=== PATIENT | female | born 1995 | race Caucasian/White ===

== ENCOUNTER 2017-05-02 15:45 | Emergency (ER) | payer MEDICAID ==
[~2017-05-02] VITALS: Ht 167.6 cm; Wt 51.0 kg
[2017-05-02] MEDS ORDERED: NAPR-943 PO (16:07)
[2017-05-02] MEDS ORDERED: IBUP-2354 PO (16:07)
[2017-05-02] MEDS ORDERED: ACET-2116 PO (16:07)
[2017-05-02 17:05] LABS: BASOPHILS # (AUTO) 0.02 K/uL (0.00-0.20); BASOPHILS % (AUTO) 0.3 % (0.0-2.0); EOSINOPHILS # (AUTO) 0.01 K/uL (0.00-0.70); EOSINOPHILS % (AUTO) 0.12 % (1.0-6.0); HEMATOCRIT 41.2 % (36-46); HEMOGLOBIN 13.6 g/dL (12.0-16.0); LYMPHOCYTES # (AUTO) 1.2 K/uL (1.0-4.8); LYMPHOCYTES % (AUTO) 20.4 % (22.0-44.0); MEAN CORPUSCULAR HEMOGLOBIN 32.8 pg (26.0-34.0); MEAN CORPUSCULAR VOLUME 99 fL (80-100); MONOCYTES # (AUTO) 0.2 K/uL (0.1-1.0); MONOCYTES % (AUTO) 2.5 % (2.0-9.0); NEUTROPHILS # (AUTO) 4.6 K/uL (1.8-7.7); NEUTROPHILS % (AUTO) 76.8 % (40.0-70.0); PLATELET COUNT (AUTO) 354 K/uL (150-450); RED BLOOD CELL COUNT(AUTO) 4.14 MIL/uL (4.00-5.20); RED CELL DISTRIBUTION WIDTH 13.4 % (11.5-14.5); WHITE BLOOD COUNT (AUTO) 5.9 K/uL (4.5-11.0)
[2017-05-02 17:14] LABS: ANION GAP 12 mmol/L (8-16); CALCIUM, TOTAL 9.3 mg/dL (8.8-10.5); CARBON DIOXIDE 26 mmol/L (22-29); CHLORIDE 102 mmol/L (98-107); GLOMERULAR FILTR. RATE CALC > 60 mL/min (>60); POTASSIUM 3.3 mmol/L (3.5-5.1); SODIUM SERUM 140 mmol/L (136-145); UREA NITROGEN, BLOOD 5 mg/dL (7-18)
[2017-05-02 17:20] LABS: SALICYLATE < 2.8 mg/dL (2.8-20.0)
[2017-05-02 17:23] LABS: ACETAMINOPHEN 2 mcg/mL (10-30); ALANINE AMINOTRANSFERASE 31 U/L (12-78); ALBUMIN 4.6 g/dL (3.4-5.0); ASPARTATE AMINOTRANSFERASE 15 U/L (15-37); BILIRUBIN,TOTAL 0.7 mg/dL (0.1-1.0); TOTAL PROTEIN, SERUM 8.4 g/dL (6.4-8.2)
[2017-05-02] MEDS ORDERED: ONDANSETRON HCL 4 MG TABLET PO ONE (17:45)
[2017-05-02 18:24] LABS: APPEARANCE,URINE CLEAR (CLEAR); GLUCOSE, URINE (UA) NEGATIVE (NEGATIVE); KETONES,URINE NEGATIVE (NEGATIVE); LEUKOCYTE ESTERASE ,URINE NEGATIVE (NEGATIVE); OCCULT BLOOD,URINE NEGATIVE (NEGATIVE)
[2017-05-02 18:28] LABS: ADD UA MICROSCOPIC NO; PROTEIN,URINE NEGATIVE (NEGATIVE)
[2017-05-02 19:46] VITALS: BP 121/78
== END 2017-05-02 19:47 | disposition home or self-care (01) ==
LOC: EMS 15:49
DX: T39.311A Poisoning by propionic acid derivatives, accidental (unintentional), initial encounter (principal); T39.1X1A Poisoning by 4-Aminophenol derivatives, accidental (unintentional), initial encounter; K04.7 Periapical abscess without sinus
CPT/HCPCS: 36415; 80053; 80307; 81003; 83690; 84703; 85025; 93005; 99285; G0480 ×2; G0481; Q0162